=== PATIENT | female | born 1950 ===

== ENCOUNTER 2022-09-05 11:54 | Emergency (ER) | payer MEDICARE ==
[2022-09-05] MEDS ORDERED: Ondansetron 4 MG/2 ML SDV IM ONE (12:28)
[2022-09-05] MEDS ORDERED: Ondansetron 4 MG Tab.DIS ONE (13:00)
== END 2022-09-05 13:25 | disposition home or self-care (01) ==
LOC: LB.ED 11:54
DX: S06.0X0A Concussion without loss of consciousness, initial encounter (principal); Z91.030 Bee allergy status; Z88.5 Allergy status to narcotic agent; W17.89XA Other fall from one level to another, initial encounter
CPT/HCPCS: 70450; 96372; 99284; J2405; Q0162